=== PATIENT | female | born 1940 | race Two or more races ===

== ENCOUNTER → 2020-07-23 | Outpatient (CLI) | payer MEDICARE ==
--- NOTE | 2020-07-23 07:20 | EKG ---
[facility] [address] [place] [address] Test Date: 2020-07-23 Test Time: 07:15:33 Pat Name: KRYSTA SANCHEZ Department: Room: Gender: F [place]: [place] : 1940 Requested By: EMILY CHE Order Number: [id number] Reading MD: Geovanny Rubi Measurements Intervals [place] Rate: 68 P: 48 DC: 116 QRS: 26 QRSD: 82 T: -71 QT: 372 QTc: 400 Interpretive Statements SINUS RHYTHM ATRIAL PREMATURE COMPLEX(ES) ST & T ABNORMALITY, CONSIDER ANTEROLATERAL ISCHEMIA OR LEFT VENTRICULAR STRAIN ABNORMAL ECG Electronically Signed On 07-23-2020 8:41:04 CDT by Geovanny Rubi
== END ==
LOC: EKG 06:52
PROVIDERS: ATTEND Internal Medicine
DX: Z01.810 Encounter for preprocedural cardiovascular examination (principal); R94.31 Abnormal electrocardiogram [ECG] [EKG]
CPT/HCPCS: 93005

== ENCOUNTER → 2020-08-16 | Outpatient (CLI) | payer MEDICARE ==
[~2020-08-16] MED LIST: AMLO-187 PO; ASPI81TA59 PO; MECL-75 PO; SIMV20TA18 PO; TRIA1TAB3 PO
[2020-08-16] MEDS: REGADENOSON 0.4 MG/5 ML DISP.SYRIN. IV ONE (10:04)
--- NOTE | 2020-08-16 13:54 | RAD ---
MR#: [id number] Date of Study: 08/16/2020 Ordering Physician: ASHLY TOLENTINO, Referring Physician: MONICA ESQUEDA Tech: RT Burt (R) (N) APPROVED REPORT Test Type: Pharmacological Stress Nurse/Tech: Heather Gamboa R.N. Test Indications: pre op for eye surgery Cardiac History: htn Medications: see ehr Medical History: see ehr Resting ECG: SR with PACs and ST depression noted in mult leads Resting Heart Rate: 84 bpm Resting Blood Pressure: 132/53mmHg Pretest Chest Pain: No chest pain Nurse/Tech Notes lungs cta, heart tones irregular Consent: The procedure was explained to the patient in lay terms. Informed consent was witnessed. Ronn eout was entered into [employer] History and Stress Test performed by KILEY Mendoza, JUAQUIN (R) (N) Pharm. Details Pharmacologic stress testing was performed using 0.4mg per 5ml of regadenoson given intravenously ove r 7-10 seconds. Stress Symptoms No chest pain or symptoms. Nausea adn vomiting-small amt of green emesis POST EXERCISE Reason for Termination: Infusion complete Target HR: No Max HR: 101 bpm Max Blood Pressure: 159/67mmHg Chest Pain: No. Arrhythmia: Yes. PACs continued throughout ST Change: Yes. ST depression deepened throughout, did not completely resolve to baseline INTERPRETATION Stress EKG Conclusion: Baseline EKG showed sinus rhythm. No ischemic changes at peak stress. Few PA C's without any significant arrhythmias. Imaging Protocol IMAGE PROTOCOL: Rest Tc-99m/stress Tc-99m 1 day Rest: Stress: Viability: Radiopharm.Tc99m ScdvubxybZv89u Sestamibi Dose10.5mCi 32mCi Duration 15min. 10min. Img Date 08/16/2020 08/16/2020 Inj-Img Ldtx00bxt. 60min. Rest Admin Site:IV - Right AntecubitalAdministrator:KILEY Mendoza ARRT (R)(N) Stress Admin Site: IV - Right AntecubitalAdministrator: KILEY Mendoza, ARRT (R)(N) STRESS DATA End Diast. Vol.39.0mlAv. Heart Rate82.0bpm End Syst. Vol.4.0mlCO Index BSA0.0L/min Myocardial Mass74.0gEject. Ovnyvyuc90.0% Stress Rates Pk. Fill Rate3.08EDV/secLVtime Pk. Fill 148.23msec Pk. Empty Rate7.92ESV/secLVtime Pk. Infxc197.18msec /3 Pk. Fill1.63EDV/sec Stress Scores Regional WT0.00Summed WT0.00 Regional WM0.00Summed WM0.00 Study quality was good. Left Ventricular size was Normal at Rest and Stress. Lung uptake was . Left Ventricular ejection fraction is >80%. The rest and stress images show normal perfusion, normal contraction and thickening. LV Perf. Quant 17 Seg. SSS1.00 17 Seg. SRS4.00 17 Seg. SDS1.00 Stress Defect Extent (% LAD)0.00Rest Defect Extent (% LAD)1.30Rev. Defect Extent (% LAD)0.00 Stress Defect Extent (% LCX) 0.00Rest Defect Extent (% LCX)16.30Rev. Defect Extent (% LCX)0.00 Stress Defect Extent (% RCA)0.00Rest Defect Extent (% RCA)0.00Rev. Defect Extent (% RCA)0.00 Stress Defect Extent (% MELANIE)0.00Rest Defect Extent (% MELANIE)5.20Rev. Defect Extent (% MELANIE)0.00 Conclusion 1. Regadenoson cardioisotope stress test did not show any evidence of ischemia or infarct. 2. Normal left ventricular systolic function with ejection fraction calculated at >80%. 3. Low risk for cardiac events. Signed by : Ashly Tolentino, Electronically Approved : 08/16/2020 13:54:07
--- NOTE | 2020-08-16 13:57 | CARD ---
MR#: [id number] Date of Study: 08/16/2020 Ordering Physician: ASHLY TOLENTINO, Referring Physician: ASHLY TOLENTINO Tech: Merly Casanova [facility] APPROVED REPORT EXAM: Two-dimensional and M-mode echocardiogram with Doppler and color Doppler. Other Information Quality : Technically LimitedHR: 76bpm Rhythm : NSR INDICATION Chest Pain 2D DIMENSIONS RVDd3.0 (2.9-3.5cm)Left Atrium(2D)4.4 (1.6-4.0cm) IVSd1.0 (0.7-1.1cm)Aortic Root(2D)3.1 (2.0-3.7cm) LVDd4.4 (3.9-5.9cm)LVOT Diameter2.1 (1.8-2.4cm) PWd0.8 (0.7-1.1cm)LVDs2.8 (2.5-4.0cm) FS (%) 37.1 %SV60.4 ml LVEF(%)67.3 (>50%) Aortic Valve AoV Peak Bruno.132.6cm/sAoV VTI26.9cm AO Peak GR.7.0mmHgLVOT Peak Bruno.92.1cm/s AO Mean GR.4mmHgAVA (VMAX)2.34cm2 AI P 1/2 Evoa585vd Mitral Valve MV E Wgfbohhi322.7cm/sMV DECEL PGDX556ln MV A Ttpnvjon690.0cm/sE/A Ratio0.9 Pulmonary Valve PV Peak Cvegcepq678.3cm/s Tricuspid Valve TR P. Fpadfklv971zl/sTR Peak Gr.35mmHg LEFT VENTRICLE The left ventricle is normal size. There is normal left ventricular wall thickness. The left ventricu lar systolic function is normal. Estimated ejection fraction 60-65%. There is normal LV segmental wa ll motion. Transmitral Doppler flow pattern is Grade I-abnormal relaxation pattern. RIGHT VENTRICLE The right ventricle is normal size. There is normal right ventricular wall thickness. The right ventr icular systolic function is normal. ATRIA The left atrium size is normal. The right atrium size is normal. The interatrial septum is intact wit h no evidence for an atrial septal defect or patent foramen ovale as noted on 2-D or Doppler imaging. AORTIC VALVE The aortic valve is normal in structure and function. Doppler and Color Flow revealed mild aortic reg urgitation. There is no significant aortic valvular stenosis. MITRAL VALVE The mitral valve is normal in structure and function. There is no evidence of mitral valve prolapse. There is no mitral valve stenosis. Doppler and Color-flow revealed mild mitral regurgitation. TRICUSPID VALVE The tricuspid valve is normal in structure and function. Doppler and Color Flow revealed trace tricus pid regurgitation. Estimated PAP 35-40 mmHg. There is no tricuspid valve stenosis. PULMONIC VALVE The pulmonary valve is normal in structure and function. Doppler and Color Flow revealed moderate pul andrew valvular regurgitation. GREAT VESSELS The aortic root is normal in size. The ascending aorta is normal in size. The IVC is normal in size a nd collapses >50% with inspiration. PERICARDIAL EFFUSION There is no evidence of significant pericardial effusion. Critical Notification Critical Value: No <Conclusion> The left ventricular systolic function is normal. Estimated ejection fraction 60-65%. There is normal LV segmental wall motion. Transmitral Doppler flow pattern is Grade I-abnormal relaxation pattern. Mild aortic regurgitation. Mild mitral regurgitation. Trace tricuspid regurgitation. Estimated PAP 35-40 mmHg. There is no evidence of significant pericardial effusion. Signed by : Ashly Tolentino, Electronically Approved : 08/16/2020 13:57:07
== END ==
LOC: NM 09:13
PROVIDERS: ATTEND Internal Medicine Cardiovascular Disease
DX: Z01.810 Encounter for preprocedural cardiovascular examination (principal); I08.8 Other rheumatic multiple valve diseases; I10 Essential (primary) hypertension
CPT/HCPCS: 78452; 93017; 93306; A9500; J2785

== ENCOUNTER → 2021-02-12 | Outpatient (CLI) | payer MEDICARE ==
--- NOTE | 2021-02-12 13:55 | RAD ---
EXAM: 1. BILATERAL DIGITAL 3-D DIAGNOSTIC MAMMOGRAPHY. 2. RIGHT BREAST ULTRASOUND. HISTORY: Palpable right breast mass. TECHNIQUE: Bilateral full field digital images were obtained in CC and MLO projections with tomosynth esis. Computer-aided detection was applied. COMPARISON: None available. This is interpreted as a baseline study. COMPOSITION: B. There are scattered areas of fibroglandular density. FINDINGS: A spiculated mass within the right upper outer breast measures 3.5 x 1.9 cm mammographicall y. It least 3 additional nodules within the right inferomedial breast measure 9 mm or numbness. Vascu lar calcifications appear benign. Sonographically, at the 1:00 position 6 cm from the nipple, a hypoechoic solid mass measures 2.5 x 1. 5 x 2.1 cm. This is immediately superficial to a rib and may involve the pectoralis muscle. This is n ot well seen mammographically and may be too superior or adherent to the chest wall. At the 9:00 position 4 cm from the nipple, a large hypoechoic mass spans 4.3 x 1.6 x 3.1 cm and corre sponds with the largest mammographic mass. At the 3:00 position, 3 cm from the nipple, a hypoechoic solid mass just superficial to the pectorali s muscle measures 8 x 8 mm. Another at the 5:00 position 3 cm from the nipple measures 7 x 5 mm. Anot her at the 5:00 position 1 cm from the nipple measures 9 x 4 mm. On the left, coarse and vascular calcifications appear benign. There is no suspicious finding on the left. Images of the right axilla reveal one no with a thickened cortex measuring 12 x 7 mm. Another has a p rominent fatty hilus but focally thickened cortex measuring 3 mm and is indeterminate. This node ana ures 13 x 6 mm. BI-RADS CATEGORY 5: Highly Suggestive of Malignancy--Appropriate action should be taken. RECOMMENDATION: 1. Ultrasound-guided biopsy of the large mass at the 9:00 position. 2. Ultrasound-guided biopsy of the 8 mm nodule at the 3:00 position 3 cm from the nipple to establish multicentric disease. 3. Ultrasound-guided biopsy of a right axillary lymph node with thickened cortex. These findings were discussed with Dr. Carter on 02/12/2021. Electronically signed by: Hermila Sandoval MD (02/12/2021 1:52 PM) [id number]
== END ==
LOC: MAMMO 12:08
PROVIDERS: ATTEND Internal Medicine
DX: N63.11 Unspecified lump in the right breast, upper outer quadrant (principal); N63.14 Unspecified lump in the right breast, lower inner quadrant; N63.12 Unspecified lump in the right breast, upper inner quadrant
CPT/HCPCS: 76641; 77066; G0279; 77062

== ENCOUNTER → 2021-03-06 | Outpatient (CLI) | payer MEDICARE ==
[~2021-03-06] MED LIST changes: +LIDOCAINE 1% Multi-Dose 20 ML VIAL. ONE
[2021-03-06] MEDS: LIDOCAINE 1% Multi-Dose 20 ML VIAL. INJ ONE (09:40)
--- NOTE | 2021-03-06 11:43 | RAD ---
EXAM: US BREAST BIOPSY ADDL LESION, US BREAST BIOPSY 1ST LESION, US BREAST BIOPSY ADDL LESION, MG DARLINE LIND MAMMO 03/06/2021 8:27 AM INDICATION: 81-year-old woman with multiple suspicious right breast masses and abnormal right axillar y lymph node. COMPARISON: Bilateral mammogram and right breast ultrasound 02/12/2021 TECHNIQUE/FINDINGS: The purpose of the procedure, risks and benefits were explained to the patient. Informed consent was obtained. A timeout was performed. The patient was placed supine on the ultrasound table. The entire right breast and axilla were preppe d and draped in standard sterile fashion. The right breast masses at 10:00 and 3:00, and the abnormal right axillary lymph node were marked. The mass at 10:00 4 cm from the nipple in the right breast was identified. Skin was anesthetized with 1 percent lidocaine. Next, 3 core biopsy samples were obtained with a coaxial 14-gauge biopsy device . Samples were placed in formalin. A coil biopsy marker was then placed at the biopsy site under ultr asound. Next, the mass at 3:00 3 cm from the nipple in the right breast was identified. Skin was anesthetized with 1 percent lidocaine. Next, 2 core biopsy samples were obtained with a coaxial 14-gauge biopsy d evice. Samples were placed in formalin. A ribbon biopsy marker was then placed at the biopsy site und er ultrasound. Finally, the abnormal lymph node in the right axilla was identified. Skin was anesthetized with 1 per cent lidocaine. Initially, one core sample was obtained with a coaxial 18-gauge biopsy device. 2 enrrique tional core biopsy samples were obtained with a coaxial 14-gauge biopsy device. Samples were placed i n formalin. A S biopsy marker was then placed at the biopsy site under ultrasound. [place] were removed, pressure held for hemostasis, and skin cleansed and covered with a dressing. Al l biopsy specimens were sent to the laboratory for analysis. The patient tolerated the procedure well and left in stable condition. Post clip mammogram demonstrates appropriate position of the clip in the mass at 10:00 4 cm from the nipple, the clip in the mass at 3:00 3 cm from the nipple, and the clip in the abnormal right axillar y lymph node. IMPRESSION: 1. Technically successful ultrasound-guided biopsy of right breast mass at 10:00 4 cm from the nipple . 2. Technically successful ultrasound-guided biopsy of right breast mass at 3:00 3 cm from the nipple. 3. Technically successful ultrasound-guided biopsy of abnormal right axillary lymph node. 4. Technically successful clip placement at all 3 biopsy sites. Electronically signed by: Maylin Menezes MD (03/06/2021 11:41 AM) [email or web address]
== END | disposition home or self-care (01) ==
LOC: US 08:24
PROVIDERS: ATTEND Internal Medicine
DX: N63.12 Unspecified lump in the right breast, upper inner quadrant (principal); N63.11 Unspecified lump in the right breast, upper outer quadrant; R92.8 Other abnormal and inconclusive findings on diagnostic imaging of breast; Z79.82 Long term (current) use of aspirin; Z79.899 Other long term (current) drug therapy
CPT/HCPCS: 19083; 19084; 38505; 77065; 88305; 88361; C1819; J3490